=== PATIENT | male | born 1950 | race Caucasian/White ===

== ENCOUNTER 2021-09-06 08:46 | Emergency (ER) | payer MEDICARE, OTHER ==
[~2021-09-06] VITALS: Ht 175.3 cm; Wt 100.2 kg
[2021-09-06] MEDS ORDERED: LORAZEPAM1 MG PO (09:26)
[2021-09-06] MEDS ORDERED: SIMVASTATIN5 MG PO (09:26)
== END 2021-09-06 11:15 | disposition home or self-care (01) ==
LOC: ED 08:46
DX: K40.90 Unilateral inguinal hernia, without obstruction or gangrene, not specified as recurrent (principal); Z79.899 Other long term (current) drug therapy
CPT/HCPCS: 76870; 81001; 99284-25